=== PATIENT | female | born 1990 | race Two or more races ===

== ENCOUNTER 2019-10-07 12:14 | Emergency (ER) | payer OTHER ==
--- NOTE | 2019-10-07 12:22 | PDOC ---
History of Present Illness - General Chief Complaint: Nausea/Vomiting Stated Complaint: HYPER EMESIS Time Seen by Provider: 10/07/19 12:16 History Source: Patient Exam Limitations: No Limitations - History of Present Illness Initial Comments: 29 yo currently at approximately [address] Haney's office with hyperemesis. She states she has been unable to keep anything down for the past ~3 weeks, lost 11 lbs. She was noted to have low BP in his office, which is unusual for her. Denies abd pain, vaginal bleeding. Past History - Medical History Allergies/Adverse Reactions: Allergies Allergy/AdvReac Type Severity Reaction Status Date / Time sesame oil Allergy Verified 10/07/19 12:17 tree nut Allergy Verified 10/07/19 12:17 Home Medications: Ambulatory Orders Budesonide [Rhinocort Allergy] 8.4 ml DAILY 10/07/19 Proair Hfa 90 mcg QID PRN 10/07/19 Review of Systems - Review of Systems Able to Perform ROS?: Yes Comments:: GENERAL/CONSTITUTIONAL: No fever or chills. No weakness. HEAD, EYES, EARS, NOSE AND THROAT: No change in vision. No ear pain or discharge. No sore throat. CARDIOVASCULAR: No chest pain or shortness of breath. RESPIRATORY: No cough, wheezing, or hemoptysis. GASTROINTESTINAL: +Nausea and vomiting. No diarrhea or constipation. GENITOURINARY: No dysuria, frequency, or change in urination. MUSCULOSKELETAL: No joint or muscle swelling or pain. No neck or back pain. SKIN: No rash. NEUROLOGIC: No headache, vertigo, loss of consciousness, or change in strength/sensation. ENDOCRINE: No increased thirst. +Weight loss. HEMATOLOGIC/LYMPHATIC: No anemia, easy bleeding, or history of blood clots. ALLERGIC/IMMUNOLOGIC: No hives or skin allergy. *Physical Exam - Physical Exam GENERAL: Awake, alert, and fully oriented, in no acute distress HEAD: No signs of trauma EYES: PERRLA, EOMI, sclera anicteric, conjunctiva clear ENT: Auricles normal inspection, hearing grossly normal, nares patent, oropharynx clear without exudates. Dry mucosa NECK: Normal ROM, supple, no lymphadenopathy, JVD, or masses LUNGS: Breath sounds equal, clear to auscultation bilaterally. No wheezes, and no crackles HEART: Regular rate and rhythm, normal S1 and S2, no murmurs, rubs or gallops ABDOMEN: Soft, nontender, normoactive bowel sounds. No guarding, no rebound. No masses EXTREMITIES: Normal range of motion, no edema. No clubbing or cyanosis. No cords, erythema, or tenderness NEUROLOGICAL: Cranial nerves II through XII grossly intact. Normal speech, normal gait. Motor and sensation intact SKIN: Warm, dry, normal turgor, no rashes or lesions noted. ED Treatment Course - LABORATORY CBC & Chemistry Diagram: 10/07/19 12:45 10/07/19 12:45 Medical Decision Making - Medical Decision Making 10/07/19 12:[address] Haney's office for hyperemesis, for IV hydration and zofran. Will check electrolytes. 10/07/19 15:40 Pt reports feeling better after second dose of zofran. Offered PO challenge. If she tolerates, will DC home. 10/07/19 17:18 Pt started to vomit again after PO challenge. She was given reglan 10 mg IV, improved significantly. Stable for DC home. Discharge - Discharge Information Problems reviewed: Yes Clinical Impression/Diagnosis: Hyperemesis gravidarum Condition: Stable Disposition: HOME - Follow up/Referral - Patient Discharge Instructions Patient Printed Discharge Instructions: DI for Hyperemesis Gravidarum - Post Discharge Activity
[2019-10-07 12:29] VITALS: PULSE 88; TEMP 98.3; BMI 19.5
[2019-10-07] MEDS ORDERED: DEXTROSE 5%-LACTATED RINGERS 1,000 ML IV SCH ×2 (12:30)
[2019-10-07] MEDS ORDERED: ONDANSETRON 4 MG/2 ML VIAL IVPUSH ONE ×2 (12:31→14:06)
[2019-10-07 12:56] LABS: BASO % 0.5 % (0-2.0); EOS % 1.3 % (0-4.5); HEMATOCRIT 38.4 % (32.4-45.2); HEMOGLOBIN 13.1 GM/dl (10.7-15.3); LYMPH % 21.5 % (8-40); MCH 29.6 pg (25.7-33.7); MEAN CELL VOLUME 87.2 fl (80-96); MEAN PLT VOLUME 9.1 fl (7.5-11.1); MONO % 8.5 % (3.8-10.2); NEUT % 68.2 % (42.8-82.8); PLATELET COUNT 272 K/MM3 (134-434); RDW 13.2 % (11.6-15.6); WHITE BLOOD COUNT 7.3 K/mm3 (4.0-10.8)
[2019-10-07] MEDS ORDERED: ONDANSETRON 4 MG/2 ML VIAL ONE ×2 (13:03→14:06)
[2019-10-07 13:06] LABS: ALBUMIN 3.6 g/dl (3.4-5.0); BILIRUBIN,TOTAL 0.4 mg/dl (0.2-1); CALCIUM 8.6 mg/dl (8.5-10); CREATININE 0.5 mg/dl (0.55-1.3); POTASSIUM 3.4 mmol/L (3.5-5.1); TOT PROT 6.6 g/dl (6.4-8.2)
[2019-10-07] MEDS ORDERED: METOCLOPRAMIDE HCL INJECTION 10 MG/2 ML VIAL IVPB ONE (16:12)
[2019-10-07] MEDS ORDERED: METOCLOPRAMIDE HCL INJECTION 10 MG/2 ML VIAL ONE (16:14)
[2019-10-07 17:22] VITALS: BP 120/72
== END 2019-10-07 17:38 | disposition home or self-care (01) ==
LOC: FER 12:14
PROC: 3E033NZ Introduction of Analgesics, Hypnotics, Sedatives into Peripheral Vein, Percutaneous Approach (ICD-10-PCS; principal; 2019-10-07)
PROC: 3E033GC Introduction of Other Therapeutic Substance into Peripheral Vein, Percutaneous Approach (ICD-10-PCS; 2019-10-07)
DX: O21.1 Hyperemesis gravidarum with metabolic disturbance (principal)
CPT/HCPCS: 36415; 80053; 85025; 99284-25

== ENCOUNTER 2020-05-09 10:40 | Inpatient (IN) | payer OTHER ==
[2020-05-09] MEDS ORDERED: AMPICILLIN - 2 GM in SODIUM CHLORIDE 100 ML IVPB ONE (11:23)
[2020-05-09] MEDS ORDERED: DEXTROSE 5%-LACTATED RINGERS 1,000 ML IV SCH (11:30)
[2020-05-09] MEDS ORDERED: AMPICILLIN SODIUM 2 GM VIAL ONE (11:53)
[2020-05-09] MEDS ORDERED: SODIUM CHLORIDE 100 ML IVPB ONE (11:53)
[2020-05-09 12:07] VITALS: BMI 25.4
[2020-05-09 12:33] LABS: BASO % 0.2 % (0-2.0); EOS % 0.2 % (0-4.5); HEMOGLOBIN 10.7 GM/dL (10.7-15.3); LYMPH % 18.3 % (8-40); MCH 28.1 pg (25.7-33.7); MCHC 33.5 g/dl (32.0-36.0); MEAN PLT VOLUME 9.4 fl (7.5-11.1); MONO % 12.4 % (3.8-10.2); NEUT % 68.9 % (42.8-82.8); PLATELET COUNT 156 K/MM3 (134-434); RBC 3.82 M/mm3 (3.60-5.2); WHITE BLOOD COUNT 6.6 K/mm3 (4.0-10.0)
[2020-05-09 12:34] LABS: INR 1.08 (0.83-1.09); PROTHROMBIN TIME (PATIENT) 13.3 SEC (9.7-13.0)
[2020-05-09 12:43] LABS: POTASSIUM 3.5 mmol/L (3.5-5.1)
[2020-05-09 12:45] LABS: BLOOD UREA NITROGEN 6.8 mg/dL (7-18); CALCIUM 7.7 mg/dL (8.5-10.1)
[2020-05-09 12:48] LABS: CREATININE 0.5 mg/dL (0.55-1.3)
[2020-05-09] MEDS: OXYTOCIN 20 UNITS in 0.9% NS 20 UNIT/1,000 ML INFUS.BAG IV SCH ×2 (14:50→17:25)
[2020-05-09] MEDS ORDERED: AMPICILLIN SODIUM 1 GM VIAL ONE (15:19)
[2020-05-09] MEDS ORDERED: AMPICILLIN - 1 GM in SODIUM CHLORIDE 100 ML IVPB SCH (15:30)
[2020-05-09] MEDS ORDERED: ELECTROLYTE-148 SOLN 500 ML IV ONE ×2 (16:00→16:30)
[2020-05-09] MEDS ORDERED: CITRIC ACID/SODIUM CITRATE 30 ML UNIT-DOSE CUP PO ONE (16:10)
[2020-05-09] MEDS ORDERED: morphine SULFATE/PF 0.5 MG/ML (2cc Syringe - QUVA) ONE (16:11)
[2020-05-09] MEDS ORDERED: PHENYLEPHRINE HCL 10 MG/1 ML SINGLE DOSE VIAL ONE (16:11)
[2020-05-09] MEDS ORDERED: ONDANSETRON 4 MG/2 ML VIAL IVPUSH PRN (16:14)
[2020-05-09] MEDS ORDERED: OXYTOCIN 20 UNITS in 0.9% NS 20 UNIT/1,000 ML INFUS.BAG IV ONE (16:16)
[2020-05-09] MEDS ORDERED: ceFAZolin SODIUM 1 GM VIAL ONE (16:34)
[2020-05-09] MEDS ORDERED: OXYTOCIN 10 UNITS/ML VIAL ONE ×2 (17:24)
[2020-05-09] MEDS ORDERED: IBUPROFEN 800 MG/8 ML IJ IVPB ONE (17:54)
[2020-05-09] MEDS ORDERED: ACETAMINOPHEN 325 MG TABLET (FP) PO PRN (17:57)
[2020-05-09] MEDS ORDERED: ONDANSETRON 4 MG/2 ML VIAL IVPB PRN (17:57)
[2020-05-09] MEDS ORDERED: ACETAMINOPHEN 1000 MG/100 ML VIAL (NON FORMULARY) IVPB PRN (17:57)
[2020-05-09] MEDS ORDERED: IBUPROFEN 600 MG TABLET (FP) PO PRN (17:57)
[2020-05-09] MEDS ORDERED: SENNOSIDES/DOCUSATE COMBO (SENNA PLUS) TABLET (UD) PO PRN (17:57)
[2020-05-09] MEDS ORDERED: IBUPROFEN 800 MG/8 ML IJ IVPB PRN (17:57)
[2020-05-09] MEDS: CEFAZOLIN 2 GM/D5W 2 GM/50 ML ML IVPB SCH (23:55)
[2020-05-10] MEDS ORDERED: HYDROmorphone HCl 2 MG/ML VIAL IVPB ONE (08:15)
[2020-05-10 08:26] LABS: BASO % 0.3 % (0-2.0); EOS % 0.2 % (0-4.5); HEMATOCRIT 33.6 % (32.4-45.2); HEMOGLOBIN 11.2 GM/dL (10.7-15.3); LYMPH % 18.5 % (8-40); MCH 28.3 pg (25.7-33.7); MCHC 33.4 g/dl (32.0-36.0); MEAN CELL VOLUME 84.8 fl (80-96); MEAN PLT VOLUME 9.6 fl (7.5-11.1); MONO % 11.3 % (3.8-10.2); NEUT % 69.7 % (42.8-82.8); PLATELET COUNT 157 K/MM3 (134-434); RBC 3.96 M/mm3 (3.60-5.2); WHITE BLOOD COUNT 8.1 K/mm3 (4.0-10.0)
[2020-05-10] MEDS: CEFAZOLIN 2 GM/D5W 2 GM/50 ML ML IVPB SCH ×2 (08:36→16:31)
[2020-05-10] MEDS: SIMETHICONE 80 MG TAB.CHEW (FP) PO PRN (16:12)
[2020-05-10] MEDS: ACETAMINOPHEN 325 MG TABLET (FP) PO PRN ×2 (16:12→20:22)
[2020-05-10] MEDS: IBUPROFEN 600 MG TABLET (FP) PO PRN ×2 (16:13→20:22)
[2020-05-10] MEDS ORDERED: BISACODYL 10 MG SUPP.RECT RC PRN (17:57)
[2020-05-10] MEDS: oxyCODONE HCL 5 MG TABLET PO PRN (18:31)
[2020-05-11] MEDS: IBUPROFEN 600 MG TABLET (FP) PO PRN ×3 (04:26→14:39)
[2020-05-11] MEDS: oxyCODONE HCL 5 MG TABLET PO PRN (04:26)
[2020-05-11] MEDS: SIMETHICONE 80 MG TAB.CHEW (FP) PO PRN ×3 (04:27→14:40)
[2020-05-11 09:28] VITALS: BP 108/69; PULSE 91; TEMP 98.8
[2020-05-11] MEDS: ACETAMINOPHEN 325 MG TABLET (FP) PO PRN ×2 (10:14→14:40)
== END 2020-05-11 16:45 | disposition home or self-care (01) | DRG 540 ==
LOC: JLDR 10:40 → J3W 19:56
PROVIDERS: ADMIT Specialist; ATTEND Specialist
PROC: 10D00Z1 Extraction of Products of Conception, Low, Open Approach (ICD-10-PCS; principal; 2020-05-09)
DX: O42.02 Full-term premature rupture of membranes, onset of labor within 24 hours of rupture (principal); O76 Abnormality in fetal heart rate and rhythm complicating labor and delivery; O77.0 Labor and delivery complicated by meconium in amniotic fluid; Z3A.39 39 weeks gestation of pregnancy; Z37.0 Single live birth
CPT/HCPCS: 36415; 80048; 85025; 85610; 86850; 86900; 86901; 88307-TC; J0131

== ENCOUNTER 2021-07-04 10:10 | Inpatient (IN) | payer OTHER ==
[2021-07-04] MEDS ORDERED: CITRIC ACID/SODIUM CITRATE 30 ML UNIT-DOSE CUP PO ONE (11:03)
[2021-07-04] MEDS ORDERED: ELECTROLYTE-148 SOLN 500 ML IV ONE (11:03)
[2021-07-04 11:05] VITALS: BMI 26.4
[2021-07-04] MEDS ORDERED: morphine SULFATE/PF 1 MG/2 ML (2cc Syringe - QUVA) ONE (11:29)
[2021-07-04] MEDS ORDERED: OXYTOCIN 10 UNITS/ML VIAL ONE (11:29)
[2021-07-04] MEDS ORDERED: PHENYLEPHRINE HCL 10 MG/1 ML SINGLE DOSE VIAL ONE (11:29)
[2021-07-04] MEDS ORDERED: ONDANSETRON 4 MG/2 ML VIAL ONE (11:29)
[2021-07-04] MEDS ORDERED: KETOROLAC TROMETHAMINE 30 MG/1 ML VIAL ONE (11:29)
[2021-07-04] MEDS ORDERED: ceFAZolin SODIUM 1 GM VIAL ONE (12:05)
[2021-07-04] MEDS ORDERED: ONDANSETRON 4 MG/2 ML VIAL IVPUSH PRN (13:11)
[2021-07-04] MEDS ORDERED: IBUPROFEN 800 MG/8 ML IJ IVPB PRN (13:23)
[2021-07-04] MEDS ORDERED: ACETAMINOPHEN 325 MG TABLET (FP) PO PRN (13:23)
[2021-07-04] MEDS ORDERED: SENNOSIDES/DOCUSATE COMBO (SENNA PLUS) TABLET (UD) PO PRN (13:23)
[2021-07-04] MEDS ORDERED: ONDANSETRON 4 MG/2 ML VIAL IVPB PRN (13:23)
[2021-07-04] MEDS ORDERED: OXYTOCIN 20 UNITS in 0.9% NS 20 UNIT/1,000 ML INFUS.BAG IV SCH (13:30)
[2021-07-04] MEDS: ACETAMINOPHEN 1000 MG/100 ML BAG IVPB PRN ×2 (13:34→19:33)
[2021-07-05] MEDS: SIMETHICONE 80 MG TAB.CHEW (FP) PO PRN ×3 (01:00→20:31)
[2021-07-05] MEDS: IBUPROFEN 600 MG TABLET (FP) PO PRN ×2 (01:00→11:29)
[2021-07-05] MEDS: oxyCODONE HCL 5 MG TABLET PO PRN ×3 (02:03→20:31)
[2021-07-05] MEDS ORDERED: SODIUM CHLORIDE 500 ML IV STA (08:30)
[2021-07-05 08:33] LABS: BASO % 0.2 % (0-2.0); EOS % 2.7 % (0-4.5); HEMATOCRIT 31.7 % (32.4-45.2); HEMOGLOBIN 10.5 GM/dL (10.7-15.3); LYMPH % 19.2 % (8-40); MEAN CELL VOLUME 87.8 fl (80-96); MEAN PLT VOLUME 8.8 fl (7.5-11.1); MONO % 9.1 % (3.8-10.2); NEUT % 68.8 % (42.8-82.8); PLATELET COUNT 171 10^3/uL (134-434); RBC 3.61 M/mm3 (3.60-5.2); RDW 17.6 % (11.6-15.6)
[2021-07-05] MEDS ORDERED: ALBUTEROL SO4 HFA INHALER IH PRN ×2 (08:37→08:40)
[2021-07-05] MEDS: PRENATAL VITAMINS W/ FOLIC ACID TABLET (FP) PO SCH (09:26)
[2021-07-05] MEDS ORDERED: BISACODYL 10 MG SUPP.RECT RC PRN (13:24)
[2021-07-05] MEDS ORDERED: IBUPROFEN 600 MG TABLET (FP) PO PRN (14:47)
[2021-07-05] MEDS: ACETAMINOPHEN 500 MG TABLET (FP) PO SCH ×2 (15:34→22:35)
[2021-07-05] MEDS ORDERED: FLUTICASONE PROP 0.05% 16 GM NASAL SPRAY NS SCH (22:00)
[2021-07-06] MEDS: oxyCODONE HCL 5 MG TABLET PO PRN (04:01)
[2021-07-06] MEDS: SIMETHICONE 80 MG TAB.CHEW (FP) PO PRN ×3 (04:01→15:13)
[2021-07-06] MEDS: ACETAMINOPHEN 500 MG TABLET (FP) PO SCH ×2 (06:27→15:56)
[2021-07-06] MEDS: PRENATAL VITAMINS W/ FOLIC ACID TABLET (FP) PO SCH (09:16)
[2021-07-06 10:43] VITALS: BP 92/59; PULSE 89; TEMP 97.8
== END 2021-07-06 17:15 | disposition home or self-care (01) | DRG 540 ==
LOC: JLDR 10:10 → J3W 14:30
PROVIDERS: ADMIT Specialist; ATTEND Specialist
PROC: 10D00Z1 Extraction of Products of Conception, Low, Open Approach (ICD-10-PCS; principal; 2021-07-04)
DX: O34.211 Maternal care for low transverse scar from previous cesarean delivery (principal); N85.8 Other specified noninflammatory disorders of uterus; O45.8X3 Other premature separation of placenta, third trimester; Z3A.38 38 weeks gestation of pregnancy; O99.824 Streptococcus B carrier state complicating childbirth; Z37.0 Single live birth
CPT/HCPCS: 36415; 85025; 88304-TC; 88307-TC

== ENCOUNTER 2023-07-19 18:44 | Emergency (ER) | payer OTHER ==
[2023-07-19 18:58] VITALS: BP 100/63; PULSE 88; RESP 16; TEMP 98.6; BMI 23.5
[2023-07-19 20:28] LABS: URINE APPEARANCE TURBID; URINE BILIRUBIN NEGATIVE (NEGATIVE); URINE COLOR YELLOW; URINE GLUCOSE (UA) NEGATIVE (NEGATIVE); URINE KETONE NEGATIVE (NEGATIVE); URINE LEUK ESTERASE NEGATIVE (NEGATIVE); URINE NITRITE NEGATIVE (NEGATIVE); URINE PROTEIN NEGATIVE (NEGATIVE)
[2023-07-19 20:29] LABS: BASO % 0.5 % (0-2.0); EOS % 8.9 % (0-4.5); HEMATOCRIT 36.6 % (32.4-45.2); HEMOGLOBIN 12.3 GM/dL (10.7-15.3); LYMPH % 37.4 % (8-40); MCHC 33.6 g/dl (32.0-36.0); MEAN CELL VOLUME 89.2 fl (80-96); MEAN PLT VOLUME 8.2 fl (7.5-11.1); MONO % 6.9 % (3.8-10.2); NEUT % 46.3 % (42.8-82.8); PLATELET COUNT 275 10^3/uL (134-434); RDW 14.1 % (11.6-15.6); WHITE BLOOD COUNT 9.2 K/mm3 (4.0-10.0)
[2023-07-19 20:37] LABS: INR 1.09 (0.83-1.09); PROTHROMBIN TIME (PATIENT) 12.3 SEC (9.7-13.0)
[2023-07-19 20:40] LABS: ACTIVATED PTT 34.1 SECONDS (25.2-36.5)
[2023-07-19 20:47] LABS: HCG,QUALITATIVE URINE Positive
[2023-07-19 20:49] LABS: POTASSIUM 3.8 mmol/L (3.5-5.1)
[2023-07-19 20:50] LABS: CALCIUM 9.1 mg/dL (8.5-10.1)
[2023-07-19 20:51] LABS: BLOOD UREA NITROGEN 12.2 mg/dL (7-18)
[2023-07-19 20:54] LABS: CREATININE 0.6 mg/dL (0.55-1.3)
== END 2023-07-19 23:21 | disposition home or self-care (01) ==
LOC: JER 18:44
DX: O03.4 Incomplete spontaneous abortion without complication (principal); M54.50 Low back pain, unspecified
CPT/HCPCS: 36415; 76817-TC; 80048; 81003; 84702; 84703; 85025; 85610; 85730; 86850; 86900; 86901; 87086; 99284-25